=== PATIENT | female | born 1965 | race Caucasian/White ===

== ENCOUNTER 2021-04-29 11:22 | Inpatient (IN) ==
[~2021-04-29 11:22] MED LIST: ceFAZolin 1,000 MG, Sodium Chloride IRRigation 1,000 ML IR ONE
[2021-04-29] MEDS ORDERED: *HR* FentaNYL (PF) 100 MCG/2 ML VIAL ONE ×2 (11:50→16:51)
[2021-04-29] MEDS ORDERED: *HR* Propofol 200 MG/20 ML VIAL IVP ONE ×2 (11:50→17:26)
[2021-04-29] MEDS ORDERED: *HR* Succinylcholine 200 MG/10 ML VIAL IVP ONE (11:51)
[2021-04-29] MEDS ORDERED: Lidocaine -MPF 2% 5 ML VIAL ONE (11:51)
[2021-04-29] MEDS ORDERED: *HR* Rocuronium Bromide 50 MG/5 ML VIAL ONE (11:51)
[2021-04-29] MEDS ORDERED: *HR* Phenylephrine 10 MG/ML VIAL ONE (11:55)
[2021-04-29] MEDS ORDERED: Heparin 1,000 UNITS/500 mL 500 ML ONE (12:23)
[2021-04-29] MEDS ORDERED: CeFAZolin Syr 2,000MG/20 ML 2,000 MG/20 ML SYRINGE IVPB ONE (12:28)
[2021-04-29] MEDS ORDERED: Ringers Solution, Lactated 1,000 ML IVC SCH (12:30)
[2021-04-29] MEDS ORDERED: Acetaminophen IV 1,000 MG/100 ML BAG IVPB ONE (13:05)
[2021-04-29] MEDS ORDERED: Famotidine 20 MG/2 ML VIAL IVP ONE (13:05)
[2021-04-29] MEDS ORDERED: *HR* HYDROmorphone PF 0.5 MG/0.5 ML SYRINGE IVP PRN (13:06)
[2021-04-29] MEDS ORDERED: Albuterol 2.5 MG/3 ML NEBULIZER IH PRN (13:06)
[2021-04-29] MEDS ORDERED: *HR* Metoprolol 5 MG/5 ML VIAL IVP PRN (13:06)
[2021-04-29] MEDS ORDERED: *HR* OxyCODONE Immed Rel 5 MG TABLET PO PRN (13:06)
[2021-04-29] MEDS ORDERED: Ondansetron 4 MG/2 ML VIAL IVP PRN ×2 (13:06→19:48)
[2021-04-29] MEDS ORDERED: *HR* Heparin 5,000 UNIT/ML VIAL ONE ×2 (15:38→16:39)
[2021-04-29 16:04] LABS: ABG Base Excess 2 mEq/L (-2 to 3); ABG Chloride 100 mEq/L (98-107); ABG Glucose 92 mg/dL (60-95); ABG HCO3 27 mEq/L (21-27); ABG Ionized Calcium 1.13 mmol/L (1.15-1.35); ABG Oxygen Saturation 94 % (95-98); ABG PCO2 41 mmHg (35-45); ABG PH 7.42 pH Units (7.32-7.45); ABG PO2 68 mmHg (85-104); ABG TCO2 28 mEq/L (20-26)
[2021-04-29] MEDS ORDERED: Neostigmine Methylsulfate 3 MG/3 ML SYRINGE ONE (17:40)
[2021-04-29] MEDS ORDERED: Ondansetron 4 MG/2 ML VIAL ONE (18:14)
[2021-04-29] MEDS ORDERED: Heparin 1,000 UNITS/500 mL 2,000 ML ONE (18:20)
[2021-04-29] MEDS ORDERED: ALPRAZolam 1 MG TABLET PO PRN (19:48)
[2021-04-29] MEDS ORDERED: *HR* Labetalol 20 MG/4 ML SYRINGE IVP PRN (19:48)
[2021-04-29] MEDS ORDERED: Naloxone 0.4 MG/ML INJ IVP PRN (19:48)
[2021-04-29] MEDS ORDERED: Acetaminophen 325 MG TABLET PO PRN (19:48)
[2021-04-29] MEDS: *HR* OxyCODONE Immed Rel 5 MG TABLET PO PRN (21:49)
[2021-04-29] MEDS: cilostazoL 100 MG TABLET PO SCH (21:49)
[2021-04-29] MEDS: Gabapentin 300 MG CAPSULE PO SCH (21:50)
[2021-04-29] MEDS: Ziprasidone 80 MG CAPSULE PO SCH (21:52)
[2021-04-30] MEDS: CeFAZolin 2 GM/120 ML BAG IVPB SCH ×3 (00:30→15:41)
[2021-04-30] MEDS: *HR* HYDROcodone/Acet 5/325 mg TABLET PO PRN ×2 (02:56→17:48)
[2021-04-30] MEDS: *HR* OxyCODONE Immed Rel 5 MG TABLET PO PRN ×2 (04:26→10:51)
[2021-04-30 05:29] LABS: Basophils # 0.1 K/mcL (0.0-0.2); Basophils % 0.4 %; Eosinophils # 0.1 K/mcL (0.0-0.6); Eosinophils % 0.7 %; Hemoglobin 13.2 g/dL (11.5-15.4); Immature Granulocytes % 0.2 % (0-4); Lymphocytes # 2.1 K/mcL (0.6-4.6); Lymphocytes % 17.8 %; Mean Corpuscular Volume 90.9 fL (83.0-100.0); Mean Platelet Volume 9.4 fL (9.4-12.4); Monocytes % 8.4 %; Neutrophils # 8.7 K/mcL (1.6-8.9); Platelet Count 265 K/mcL (140-400); Red Cell Distribution Width 14.1 % (11.5-14.5); Segmented Neutrophils % 72.5 %
[2021-04-30 05:38] LABS: BUN/Creatinine Ratio 17 (6-26); Blood Urea Nitrogen 11 mg/dL (6-20); Calcium 8.8 mg/dL (8.6-10.3); Carbon Dioxide 30 mEq/L (23-29); Chloride 100 mEq/L (98-107); Glucose 92 mg/dL (70-105); Osmolality,Calculated 281 (280-300); Potassium 4.2 mEq/L (3.5-5.1); Sodium 136 mEq/L (136-145); eGFR For African Americans > 60 (> 60); eGFR For Non-African Americans > 60 (> 60)
[2021-04-30] MEDS: Gabapentin 300 MG CAPSULE PO SCH ×2 (08:29→14:29)
[2021-04-30] MEDS: cilostazoL 100 MG TABLET PO SCH (08:29)
[2021-04-30] MEDS: Ziprasidone 80 MG CAPSULE PO SCH (08:29)
[2021-04-30] MEDS ORDERED: estradioL 0.5 MG TABLET PO SCH (09:00)
[2021-04-30] MEDS ORDERED: amLODIPine 5 MG TABLET PO SCH (09:00)
[2021-04-30] MEDS ORDERED: Cholecalciferol (D-3) 1,000 UNIT (25MCG) TABLET PO SCH (09:00)
[2021-04-30] MEDS ORDERED: BuPROPion XL (24 HR) 150 MG TABLET PO SCH (09:00)
[2021-04-30] MEDS ORDERED: Furosemide 40 MG TABLET PO SCH (09:00)
[2021-04-30] MEDS ORDERED: Albuterol 2.5 MG/3 ML NEBULIZER IH PRN (12:53)
[2021-04-30 13:00] VITALS: O2SAT 92
[2021-04-30 16:04] VITALS: BP 157/66; PULSE 89; TEMP 98.2
== END 2021-04-30 17:55 | disposition home or self-care (01) | DRG 253 ==
LOC: SAMDAY 11:22 → 2NNU 19:46
PROVIDERS: ADMIT Surgery Vascular Surgery; ATTEND Surgery Vascular Surgery